=== PATIENT | female | born 1970 | race Caucasian/White ===

== ENCOUNTER 2022-06-20 05:24 | Day surgery (SDC) | payer BC, OTHER ==
[2022-06-20] MEDS ORDERED: Midazolam 1 MG/ML 2 ML SDV IV ONE ×7 (05:25→06:34)
[2022-06-20] MEDS ORDERED: fentaNYL 100 MCG/2 ML SDV IV ONE ×4 (05:25→06:35)
[2022-06-20] MEDS ORDERED: Sodium Chloride 0.9% 10 ML Syringe FLUSH PRN (06:00)
[2022-06-20] MEDS ORDERED: Dextrose 5%-0.45% NaCl 1,000 ML IV SCH (06:00)
[2022-06-20] MEDS ORDERED: Midazolam 1 MG/ML 2 ML SDV ONE (06:23)
[2022-06-20] MEDS ORDERED: fentaNYL 100 MCG/2 ML SDV ONE (06:24)
[2022-06-20 08:14] VITALS: PULSE 54
[2022-06-20 08:57] VITALS: BP 144/81
[2022-06-20] MEDS ORDERED: Sodium Chloride 0.9% 10 ML Syringe FLUSH SCH (09:00)
== END 2022-06-20 08:45 | disposition home or self-care (01) ==
LOC: DL.ENDO 05:24
PROVIDERS: ATTEND Internal Medicine Gastroenterology
DX: Z12.11 Encounter for screening for malignant neoplasm of colon (principal); D12.2 Benign neoplasm of ascending colon; D64.9 Anemia, unspecified; E66.09 Other obesity due to excess calories; E78.00 Pure hypercholesterolemia, unspecified; K64.4 Residual hemorrhoidal skin tags; K57.30 Diverticulosis of large intestine without perforation or abscess without bleeding; Z68.35 Body mass index [BMI] 35.0-35.9, adult
CPT/HCPCS: 45385; J2250; J3010; J7042